=== PATIENT | male | born 1995 | race Caucasian/White ===

== ENCOUNTER 2016-12-08 07:39 | Emergency (ER) | payer BC ==
[~2016-12-08] VITALS: Ht 182.9 cm; Wt 74.8 kg
[2016-12-08 07:53] VITALS: BP 135/80
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
== END 2016-12-08 09:53 | disposition home or self-care (01) ==
LOC: ER 07:39
DX: H54.61 Unqualified visual loss, right eye, normal vision left eye (principal); S05.91XA Unspecified injury of right eye and orbit, initial encounter; W22.8XXA Striking against or struck by other objects, initial encounter; Y93.89 Activity, other specified; Y99.8 Other external cause status; Y92.89 Other specified places as the place of occurrence of the external cause
CPT/HCPCS: 70486; 99284-25